=== PATIENT | male | born 1950 | race Caucasian/White ===

== ENCOUNTER 2022-11-29 05:36 | Outpatient (CLI) | payer MEDICARE, BC ==
[~2022-11-29] VITALS: Ht 177.8 cm; Wt 104.5 kg
[2022-11-29] MEDS ORDERED: GLUC-132 PO (12:28)
[2022-11-29] MEDS ORDERED: MULT-1136 PO (12:28)
[2022-11-29] MEDS ORDERED: ASPI-999 PO (12:28)
[2022-11-29] MEDS ORDERED: DOCU-143 PO (12:28)
[2022-11-29] MEDS ORDERED: PRAV10TA PO (12:28)
== END 2022-11-29 12:46 | disposition home or self-care (01) ==
LOC: PREOP 05:36
PROVIDERS: ATTEND Specialist
DX: Z01.818 Encounter for other preprocedural examination (principal)

== ENCOUNTER 2022-12-02 09:53 | Day surgery (SDC) | payer MEDICARE, BC ==
[~2022-12-02] VITALS: Ht 177.8 cm; Wt 104.5 kg
[~2022-12-02 09:53] MED LIST: ASPI-999 PO; DOCU-143 PO; GLUC-132 PO; MULT-1136 PO; PRAV10TA PO
[2022-12-02] MEDS ORDERED: POVIDONE IODINE OPHTH SOLN 5% 30 ML OP ONE (11:15)
[2022-12-02] MEDS ORDERED: TIMOLOL 0.5% (CATARACTS) 0.3 ML BTL OU PRN (11:15)
[2022-12-02] MEDS ORDERED: MOXIFLOXACIN OPHTH SOLN 5 MG/ML 0.3 ML SYRINGE OP ONE (11:15)
[2022-12-02] MEDS: TETRACAINE 0.5% OPHTH SOLN 4 ML BTL (SINGLE DOSE ONLY) OU PRN ×4 (11:20→11:39)
[2022-12-02] MEDS ORDERED: MIDAZOLAM INJ 2 MG/2 ML VIAL ONE (11:27)
[2022-12-02] MEDS: PHENYLEPHRINE 10% OPHTH SOLN 5 ML BTL OU SCH ×3 (11:29→11:39)
[2022-12-02] MEDS: TROPICAMIDE 1% OPH SOLN (MYDRIACYL) 15 ML BTL OP SCH ×3 (11:29→11:39)
--- NOTE | 2022-12-02 11:39 | Ophthalmologist Pre-Op Note ---
Pre-Operative Progress Note H&P Reviewed The H&P was reviewed, patient examined and no changes noted. Date H&P Reviewed: Dec 02, 2022 Time H&P Reviewed: 11:39 Pre-Op Dx Cataract, Right Eye SHAKIR VASQUES MD Dec 02, 2022 11:39
[2022-12-02 11:44] VITALS: BP 159/76
--- NOTE | 2022-12-02 12:25 | Ophthalmology Operative Report ---
Cataract removal/placement IOL PREOPERATIVE DIAGNOSIS: Cataract Right Eye POSTOPERATIVE DIAGNOSIS: Cataract Right Eye PROCEDURE: Cataract removal and placement of posterior chamber implant, right eye SURGEON: Aly Vasques ANESTHESIA: Topical with sedation COMPLICATIONS: None ESTIMATED BLOOD LOSS: Minimal DESCRIPTION OF PROCEDURE: After proper informed consent was obtained, the patient, a [id number] male, was taken to the Operating Room and the right eye was anesthetized with tetracaine. The right eye was then prepped and draped in the usual manner. A wire lid speculum was placed. A paracentesis was made at the left hand position. Preservative free lidocaine was injected into the anterior chamber followed by viscoelastic. A clear corneal incision was made in the temporal position. A capsulorrhexis was preformed and the central nuclear and cortical material were removed. The posterior capsule was polished and Tushar 22.5 AU00T0 IOL was placed into the capsular bag. The residual viscoelastic was aspirated and balanced saline solution was injected into the anterior chamber. Moxifloxacin was injected into the anterior chamber. The wound was checked and found to be water tight. The patient tolerated the procedure well without complications. ALY VASQUES MD Dec 02, 2022 12:25
[2022-12-02 12:27] VITALS: BP 134/78
--- NOTE | 2022-12-02 12:58 | Anesthesia-General Post-Op ---
MAC Patient Condition Mental Status/LOC: Same as Preop Cardiovascular: Satisfactory Nausea/Vomiting: Absent Respiratory: Satisfactory Pain: Controlled Complications: Absent Post Op Complications Complications None Follow Up Care/Instructions Patient Instructions None needed. Anesthesiology Discharge Order Discharge Order Patient is doing well, no complaints, stable vital signs, no apparent adverse anesthesia problems. No complications reported per nursing. PRAKASH FRIED CRNA Dec 02, 2022 12:58
== END 2022-12-02 12:28 | disposition home or self-care (01) ==
LOC: SDC 09:53
PROVIDERS: ATTEND Specialist
DX: H25.9 Unspecified age-related cataract (principal); Z87.891 Personal history of nicotine dependence
CPT/HCPCS: 66984; V2632

== ENCOUNTER 2022-12-06 09:47 | Outpatient (CLI) | payer MEDICARE, BC | END 2022-12-06 14:25 | disposition home or self-care (01) | LOC: PREOP 09:47 | PROVIDERS: ATTEND Specialist | DX: Z01.818 Encounter for other preprocedural examination (principal) ==